=== PATIENT | male | born 1960 | race African-American/Black ===

== ENCOUNTER 2017-05-22 18:18 | Emergency (ER) | payer SELFPAY, MEDICARE, OTHER | END 2017-05-22 19:47 | disposition home or self-care (01) | LOC: ER 18:18 | DX: R11.10 Vomiting, unspecified (principal); R19.7 Diarrhea, unspecified; Z21 Asymptomatic human immunodeficiency virus [HIV] infection status; Z90.49 Acquired absence of other specified parts of digestive tract | CPT/HCPCS: 99284 ==

== ENCOUNTER 2018-08-04 12:26 | Emergency (ER) | payer MEDICARE, MEDICAID ==
[~2018-08-04] VITALS: Ht 180.3 cm; Wt 79.4 kg
[2018-08-04 12:47] VITALS: BP 117/71
--- NOTE | 2018-08-04 12:59 | RAD ---
EXAM: Chest, 2 views. HISTORY: Cough. COMPARISON: 07/24/2013. FINDINGS: 2 views the chest are obtained. There is no infiltrate, pleural effusion or pneumothorax. The heart is normal in size. IMPRESSION: No acute pulmonary finding. Electronically signed by: Kiara Reyes MD (08/04/2018 12:56 PM) [facility]
[2018-08-04 13:34] LABS: INFLUENZA A PATIENT NEGATIVE (NEGATIVE); INFLUENZA B PATIENT NEGATIVE (NEGATIVE)
--- NOTE | 2018-08-04 14:00 | PHYS DOC ---
Past Medical History Past Medical History: HIV Past Surgical History: Appendectomy Additional Information: 1 PACK/WEEK Alcohol Use: None Drug Use: None Adult General Chief Complaint Chief Complaint: FLU SYMPTOM HPI HPI Patient is a 57 year old male with history of HIV on medications and compliant who presents to the ED today complaining of a cough that began 3 days ago. Patient is also complaining of subjective fevers for 3 days. He states today he had an episode of diarrhea and he felt weak. He states the last time he had similar symptoms he had pneumonia and would like to be checked for it Review of Systems Review of Systems Constitutional: Reports fever Eyes: Denies change in visual acuity, redness, or eye pain [] HENT: Denies nasal congestion or sore throat [] Respiratory: Reports cough, denies shortness of breath [] Cardiovascular: No additional information not addressed in HPI [] GI: Reports an episode of diarrhea. Denies abdominal pain, nausea, vomiting, bloody stools : Denies dysuria or hematuria [] Musculoskeletal: Denies back pain or joint pain [] Integument: Denies rash or skin lesions [] Neurologic: Reports weakness. Denies headache, focal weakness or sensory changes [] All other systems were reviewed and found to be within normal limits, except as documented in this note. Allergies Allergies Allergies Coded Allergies Type Severity Reaction Last Updated Verified No Known Drug Allergies 07/24/13 No Physical Exam Physical Exam Constitutional: Well developed, well nourished, no acute distress, non-toxic appearance. [] HENT: Normocephalic, atraumatic, bilateral external ears normal, oropharynx moist, no oral exudates, nose normal. [] Eyes: PERRLA, EOMI, conjunctiva normal, no discharge. [] Neck: Normal range of motion, no tenderness, supple, no stridor. [] Cardiovascular:Heart rate regular rhythm, no murmur [] Lungs & Thorax: Bilateral breath sounds clear to auscultation [] Abdomen: Bowel sounds normal, soft, no tenderness, no masses, no pulsatile masses. [] Skin: Warm, dry, no erythema, no rash. [] Back: No tenderness, no CVA tenderness. [] Extremities: No tenderness, no cyanosis, no clubbing, ROM intact, no edema. [] Neurologic: Alert and oriented X 3, normal motor function, normal sensory function, no focal deficits noted. [] Psychologic: Affect normal, judgement normal, mood normal. [] Current Patient Data Vital Signs Vital Signs Date Time Temp Pulse Resp B/P (MAP) Pulse Ox O2 Delivery O2 Flow Rate FiO2 08/04/18 12:47 98.8 102 20 117/71 (86) 97 Room Air 98.8 Lab Values Laboratory Tests Test 08/04/18 12:40 Influenza Type A Antigen Negative (NEGATIVE) Influenza Type B Antigen Negative (NEGATIVE) EKG EKG [] Radiology/Procedures Radiology/Procedures [] Course & Med Decision Making Course & Med Decision Making Pertinent Labs and Imaging studies reviewed. (See chart for details) This is a 57-year-old male patient who presents to the ED today complaining of cough for 3 days, fever. Is also complaining of an episode of diarrhea and weakness today. He states the last time he had similar symptoms he had pneumonia , patient is in no distress. Patient is afebrile in the ED. Chest x-rays is negative for pneumonia. Negative influenza A or B. Patient was discharged to home. Due to his underlying HIV condition he was discharged on azithromycin. Follow-up with PCP in 1-2 weeks. Patient is also a smoker, he was advised to consider smoking cessation. Dragon Disclaimer Dragon Disclaimer This electronic medical record was generated, in whole or in part, using a voice recognition dictation system. Departure Departure Impression: Primary Impression: Acute bronchitis Additional Impressions: Fever Smoking addiction Disposition: 01 HOME, SELF-CARE Condition: STABLE Referrals: NO PCP (PCP) Follow-up with your doctor in the next 7 days Patient Instructions: Acute Bronchitis, Smoking Cessation Additional Instructions: You seen for acute bronchitis. We put you on antibiotics. Ensure you complete them. Take the rest of the prescribed medications as ordered. Come back to the ED at any point symptoms worsen. Follow-up with your doctor in the next 7 days. Scripts Albuterol Sulfate (VENTOLIN HFA INHALER) 18 Gm Hfa.aer.ad 2 PUFF INH Q4HRS for FOR ASTHMA, #1 INHALER 0 Refills Prov: MUTUNGA,OTTO SITE SAFETY REPRESENTATIVE 08/04/18 Hydrocodone/Chlorphen Polis (HYDROCODONE-CHLORPHENIRAM SUSP) 5 Ml Angeli.er.12h 5 ML PO PRN Q12HR PRN for COUGH, #60 ML 0 Refills Prov: MUTUNGA,OTTO SITE SAFETY REPRESENTATIVE 08/04/18 Azithromycin (ZITHROMAX) 250 Mg Tablet 1 PKG PO UD, #1 PKG Prov: OTTO APODACA SITE SAFETY REPRESENTATIVE 08/04/18 Problem Qualifiers Primary Impression: Acute bronchitis Bronchitis organism: unspecified organism Qualified Codes: J20.9 - Acute bronchitis, unspecified Additional Impressions: Fever Fever type: unspecified Qualified Codes: R50.9 - Fever, unspecified COLLEENMATTHEWOTTO Lopez APRN Aug 04, 2018 14:00
[2018-08-04] MEDS ORDERED: VENTOLIN HFA18 GM INH (14:09)
[2018-08-04] MEDS ORDERED: HYDR5SUS PO (14:09)
[2018-08-04] MEDS ORDERED: AZIT250T PO (14:09)
== END 2018-08-04 14:32 | disposition home or self-care (01) ==
LOC: ER 12:26
DX: J20.9 Acute bronchitis, unspecified (principal); R19.7 Diarrhea, unspecified; F17.200 Nicotine dependence, unspecified, uncomplicated; Z90.89 Acquired absence of other organs
CPT/HCPCS: 71046; 87804; 99284-25